=== PATIENT | male | born 1985 | race Caucasian/White ===

== ENCOUNTER 2018-02-18 12:47 | Day surgery (SDC) | payer OTHER, BC ==
[~2018-02-18] VITALS: Ht 177.8 cm; Wt 95.0 kg
[2018-02-18 13:37] VITALS: BP 116/76
[2018-02-18 18:20] VITALS: BP 112/77
[2018-02-18 19:05] VITALS: BP 118/64
== END 2018-02-18 19:05 | disposition home or self-care (01) ==
LOC: SDC 12:47
PROC: 0LSS0ZZ Reposition Right Ankle Tendon, Open Approach (ICD-10-PCS; principal; 2018-02-18)
DX: S93.491A Sprain of other ligament of right ankle, initial encounter (principal); S86.311A Strain of muscle(s) and tendon(s) of peroneal muscle group at lower leg level, right leg, initial encounter; M25.371 Other instability, right ankle; X50.1XXA Overexertion from prolonged static or awkward postures, initial encounter; Y93.89 Activity, other specified
CPT/HCPCS: J0690; J1100; J2250; J2795; J3010; S0020